=== PATIENT | female | born 1955 | race Caucasian/White ===

== ENCOUNTER 2020-07-07 04:05 | Inpatient (IN) | payer MEDICARE, OTHER ==
[2020-07-07 05:53] VITALS: BMI 39.4
--- NOTE | 2020-07-07 09:28 | PDOC.HHP ---
Hospitalist HPI Hypertensive urgency History of Present Illness: 65 y/o female with history of HTN, CAD, Pacemaker/Defibrillator, Diabetes who complains of not feeling well that last couple days, states she has had a sinking feeling on and off over the last 7 days. Patient here for hypertensive urgency, states her blood pressure at home was ranging 170-190 systolic/90-100 diastolic. Patient takes Lasix, Lisinopril, Amlodipine, Carvedilol and Clonidine PRN. Patient had a headache on and off over the last couple days, describes it as throbbing. Denies nausea, chest pain, shortness of breath, dizziness or hematuria. ED Course: patient was a direct admit from [facility]. Allergies/Adverse Reactions: Allergy/AdvReac Type Severity Reaction Status Date / Time tramadol Allergy Verified 07/07/20 07:30 metformin AdvReac Verified 07/07/20 07:30 Home Medications: Medication Instructions Recorded Confirmed Type Furosemide [Lasix] 40 mg PO QAM #0 tab 02/17/13 07/07/20 Rx Clopidogrel Bisulfate [Plavix] 75 mg PO DAILY 08/08/13 07/07/20 History Lisinopril 10 mg PO DAILY 12/31/14 07/07/20 History Amlodipine [Norvasc] 5 mg PO DAILY 02/20/16 07/07/20 History Atorvastatin Calcium 80 mg PO DAILY 09/28/16 07/07/20 History Carvedilol 25 mg PO BID 09/28/16 07/07/20 History Acetaminophen 500 mg PO PRN PRN 07/07/20 07/07/20 History Aspirin [Ecotrin] 81 mg PO DAILY 07/07/20 07/07/20 History Cholecalciferol (Vitamin D3) 1,000 unit PO DAILY 07/07/20 07/07/20 History [Vitamin D] Glimepiride 4 mg PO QAM-WM 07/07/20 07/07/20 History cloNIDine [Catapres] 1 tab PO PRN PRN 07/07/20 07/07/20 History Past History: PMHx: 1. HTN 2. CAD 3. Diabetes PSHx: 1. Tonsillectomy 2. Hysterectomy 3. CABG 4. Defibrillator/Pacemaker placement FHx: Noncontributory Social: Denies drinking, smoking, drug use. Single female lives at home by herself in [place]. Hospitalist HPI ROS Constitutional: denies: fever, chills, sweats, weakness, malaise, other Eyes: denies: pain, vision change, conjunctivae inflammation, eyelid inflammation, redness, other ENT: denies: ear pain, ear discharge, nose pain, nose discharge, nose congestion, mouth pain, mouth swelling, throat pain, throat swelling, other Respiratory: denies: cough, dry, shortness of breath, hemoptysis, SOB with excertion, pleuritic pain, sputum, wheezing, other Cardiovascular: denies: chest pain, palpitations, orthopnea, paroxysmal noc. dyspnea, edema, light headedness, other Gastrointestinal: denies: nausea, vomiting, abdominal pain, diarrhea, constipati on, melena, hematochezia, other Genitourinary: denies: dysuria, frequency, incontinence, hematuria, retention, other Musculoskeletal: denies: neck pain, shoulder pain, arm pain, back pain, hand pain, leg pain, foot pain, other Skin: denies: rash, lesions, dusty, bruising, other Neurological: denies: weakness, numbness, incoordination, change in speech, confusion, seizures, other All other systems reviewed; all pertinent +/- noted in HPI/Subj Hospitalist Exam Vitals: Vital Signs (12 hours) Temp Pulse Resp BP Pulse Ox 07/07/20 07:35 98.5 F 61 18 167/85 H 98 07/07/20 05:59 98.2 F 72 18 178/82 H 98 07/07/20 04:30 98 07/07/20 04:18 97.8 F 72 18 192/72 H 98 Weight Weight 208 lb 8.917 oz General Appearance: NAD, awake alert Eye: PERRL, anicteric sclera ENT: normocephalic atraumatic, no oropharyngeal lesions, moist mucosa Neck: supple, symmetric, no JVD, no thyromegaly, no lymphadenopathy, no carotid bruit Heart: RRR, no murmur, no gallops, no rubs, normal peripheral pulses Respiratory: CTAB, no wheezes, no rales, no ronchi, normal chest expansion, no tachypnea, normal percussion Gastrointestinal: soft, non-tender, non-distended, normal bowel sounds, no palpable masses, no hepatomegaly, no splenomegaly, no bruit Extremities: no cyanosis, no clubbing, no edema Skin: normal turgor, no lesions, no rashes Neurological: cranial nerve grossly intact, normal sensation to touch, no weakness, no focal deficits, no new deficit Musculoskeletal: normal tone, normal strength, no muscle wasting Psychiatric: normal affect, normal behavior, A&O x 3 Hospitalist Results Result Diagrams: 07/07/20 12:06 07/07/20 10:18 Lab results: Laboratory Last Values POC Glucose 152 mg/dL (70-100) H 07/07/20 05:26 Hospitalist H&P A/P (1) Hypertensive urgency Code(s): I16.0 - HYPERTENSIVE URGENCY Status: Acute (2) CAD (coronary artery disease) Code(s): I25.10 - ATHSCL HEART DISEASE OF [place] CORONARY ARTERY W/O ANG PCTRS Status: Chronic (3) Diabetes Code(s): E11.9 - TYPE 2 DIABETES MELLITUS WITHOUT COMPLICATIONS Status: Chronic Qualifiers: Diabetes mellitus type: type 2 Plan: 65 y/o female directly admitted from [facility] for hypertensive urgency. Patient c/o not feeling well that last couple days, states she has had a sinking feeling on and off over the last 7 days. Patient has history of HTN, CAD, Pacemaker/Defibrillator placement, Diabetes. Patient's print graphic designer is Dr. Torres, states she had a normal stress test about 1 year ago. EKG showed 70 paced rhythm. PLAN: Hypertensive Urgency -Patient here for hypertensive urgency, states her blood pressure at home was ranging 170-190/90-100. Patient takes Lasix, Lisinopril, Amlodipine, Carvedilol and Clonidine PRN. -Continue home medications and will monitor BP while here q4. If controlled, can possibly dc in 24 hours CAD s/p CABG -Troponins are trending up, patient denies chest pain. -ECHO ordered. CKMB critical value of 36.0, will trend -Continue aspirin and plavix and statin Diabetes -Accuchecks ACHS -Continue home medications. CKD - creatinine 1.41, at baseline Transaminitis - LFTS showed 41 AST and 67 ALT. Will repeat FULL CODE STATUS.
[2020-07-07 10:42] LABS: ALT (SGPT) 67 U/L (8-55); AST (SGOT) 41 U/L (5-34); Albumin 3.2 g/dL (3.4-4.8); Alkaline Phosphatase 144 U/L (40-110); Anion Gap 16 mmol/L (10-20); BUN (Urea Nitrogen) 39 mg/dL (9.8-20.1); Bilirubin, Total 0.5 mg/dL (0.2-1.2); Calc. Creatinine Clearance 59 mL/min (70-130); Calcium 8.1 mg/dL (7.8-10.44); Carbon Dioxide 17 mmol/L (23-31); Chloride 112 mmol/L (98-107); Globulin 2.4 g/dL (2.4-3.5); Glucose 109 mg/dL (80-115); Potassium 3.9 mmol/L (3.5-5.1); Protein, Total 5.6 g/dL (5.8-8.1); Sodium 141 mmol/L (136-145)
[2020-07-07] MEDS ORDERED: Amlodipine 5 MG TAB PO SCH (10:45)
[2020-07-07] MEDS ORDERED: Lisinopril 10 MG TAB PO SCH (10:45)
[2020-07-07] MEDS ORDERED: Dextrose 5% in Water 1,000 ML IV PRN (12:10)
[2020-07-07] MEDS ORDERED: Dextrose 50% Abboject 50 ML SYRINGE SLOW IVP PRN (12:10)
[2020-07-07 12:17] LABS: #Eosinphils 0.2 thou/uL (0.0-0.7); #Lymphocytes 1.4 thou/uL (1.20-3.40); #Monocytes 0.4 thou/uL (0.11-0.59); #Neutrophils 2.8 thou/uL (1.40-6.50); %Basophils 0.6 % (0.0-1.0); %Eosinophils 4.3 % (0.0-10.0); %Lymphocytes 28.9 % (21.0-51.0); %Monocytes 8.2 % (0.0-10.0); Hemoglobin 10.6 g/dL (12.0-16.0); Mean Corpuscular HGB CONC 34.1 g/dL (32.0-36.0); Mean Corpuscular Hemoglobin 29.5 pg (27.0-31.0); Mean Corpuscular Volume 86.6 fL (78.0-98.0); Mean Platelet Volume 9.1 fL (7.4-10.4); Platelet Count 145 thou/uL (130-400); RBC Distribution Width 14.5 % (11.5-14.5); Red Blood Cell (RBC) Count 3.57 mill/uL (4.20-5.40); White Blood Cell (WBC) Count 4.8 thou/uL (4.8-10.8)
[2020-07-07] MEDS: cloNIDine 0.1 MG TAB PO PRN ×2 (16:42→21:55)
[2020-07-07 17:03] LABS: CKMB 29.4 ng/mL (0-6.6); Critical Call CKMB RESULT DECREASING
[2020-07-07] MEDS ORDERED: Acetaminophen 500 MG TAB PO PRN (18:04)
[2020-07-07] MEDS: Atorvastatin Calcium 40 MG TAB PO SCH (20:55)
[2020-07-07] MEDS: Carvedilol 25 MG TAB PO SCH (20:55)
[2020-07-07] MEDS ORDERED: HumaLOG 300 UNITS/3 ML VIAL SC PRN (21:19)
[2020-07-07] MEDS ORDERED: cloNIDine 0.1 MG TAB PO PRN (23:26)
[2020-07-08] MEDS: hydrALAZINE 20 MG/ML VIAL SLOW IVP PRN ×2 (00:15→10:18)
[2020-07-08 05:05] LABS: ALT (SGPT) 54 U/L (8-55); AST (SGOT) 26 U/L (5-34); Albumin 2.9 g/dL (3.4-4.8); Alkaline Phosphatase 122 U/L (40-110); Anion Gap 11 mmol/L (10-20); BUN (Urea Nitrogen) 41 mg/dL (9.8-20.1); Bilirubin, Total 0.5 mg/dL (0.2-1.2); Calc. Creatinine Clearance 59 mL/min (70-130); Calcium 7.8 mg/dL (7.8-10.44); Carbon Dioxide 23 mmol/L (23-31); Chloride 109 mmol/L (98-107); Globulin 2.1 g/dL (2.4-3.5); Glucose 90 mg/dL (80-115); Sodium 139 mmol/L (136-145)
[2020-07-08] MEDS: Furosemide 40 MG TAB PO SCH (08:10)
[2020-07-08] MEDS: Aspirin 81 mg Enteric Coated Tablet PO SCH (08:10)
[2020-07-08] MEDS: Clopidogrel Bisulfate 75 MG TAB PO SCH (08:10)
[2020-07-08] MEDS: Carvedilol 25 MG TAB PO SCH ×2 (08:10→21:20)
[2020-07-08] MEDS: Lisinopril 20 MG TAB PO SCH (08:10)
[2020-07-08] MEDS: Glimepiride 4 MG TAB PO SCH (08:10)
[2020-07-08] MEDS: Cholecalciferol 1,000 UNITS (25 MCG) TAB PO SCH (08:10)
[2020-07-08] MEDS ORDERED: Lisinopril 10 MG TAB PO SCH (09:00)
[2020-07-08] MEDS ORDERED: Enoxaparin Sodium 40 MG/0.4 ML SYRINGE SC SCH (09:00)
[2020-07-08] MEDS ORDERED: Amlodipine 5 MG TAB PO SCH ×3 (09:00→10:36)
[2020-07-08] MEDS ORDERED: Aspirin 325 MG TAB PO SCH (09:00)
[2020-07-08] MEDS ORDERED: Atorvastatin Calcium 10 MG TAB PO SCH (09:00)
[2020-07-08] MEDS ORDERED: Clopidogrel Bisulfate 75 MG TAB PO SCH (09:00)
[2020-07-08] MEDS ORDERED: Cholecalciferol 1,000 UNITS (25 MCG) TAB PO SCH (09:00)
--- NOTE | 2020-07-08 09:43 | PDOC.HOSPP ---
- Subjective Encounter Date: 07/08/20 Encounter Time: 09:41 Subjective: Overnight patient continues to remain hypertensive to 190s. This AM she endorses very mild headache that she would not take tylenol for. Denies chest pain, SOB. No abdominal pain. Reports she is making usual amount of urine. Reports she has had lots of difficulty controlling her BP as an outpatient with Dr. Torres and her PCP. Last week lisinopril was added by her PCP to her amlodipine and clonidine. Chart and medications reviewed. - Objective Vital Signs & Weight: Vital Signs (12 hours) Temp Pulse Resp BP BP Pulse Ox 07/08/20 08:58 96 07/08/20 08:00 98.3 F 61 17 198/80 H 96 07/08/20 04:30 98.0 F 61 12 172/68 H 96 07/08/20 00:15 204/84 H 07/08/20 00:00 184/84 H 07/07/20 21:55 204/84 H 186/78 H Weight Weight 210 lb 8.663 oz I&O: 07/07/20 07/08/20 07/09/20 06:59 06:59 06:59 Intake Total 720 Balance 720 Result Diagrams: 07/07/20 12:06 07/08/20 04:00 Additional Labs: Accuchecks 07/08/20 07/07/20 07/07/20 05:35 20:54 17:12 POC Glucose 104 H 208 H 134 H 07/07/20 10:50 POC Glucose 102 H Hospitalist ROS - Review of Systems Constitutional: denies: fever, chills, sweats, weakness, malaise, other Eyes: denies: pain, vision change, conjunctivae inflammation, eyelid inflammation, redness, other ENT: denies: ear pain, ear discharge, nose pain, nose discharge, nose congestion, mouth pain, mouth swelling, throat pain, throat swelling, other Respiratory: denies: cough, dry, shortness of breath, hemoptysis, SOB with excertion, pleuritic pain, sputum, wheezing, other Cardiovascular: denies: chest pain, palpitations, orthopnea, paroxysmal noc. dyspnea, edema, light headedness, other Gastrointestinal: denies: nausea, vomiting, abdominal pain, diarrhea, constipation, melena, hematochezia, other Genitourinary: denies: dysuria, frequency, incontinence, hematuria, retention, other Musculoskeletal: denies: neck pain, shoulder pain, arm pain, back pain, hand pain, leg pain, foot pain, other Skin: denies: rash, lesions, dusty, bruising, other Neurological: denies: weakness, numbness, incoordination, change in speech, confusion, seizures, other - Medication Medications: Active Medications Generic Name Dose Route Start Last Admin Trade Name Freq PRN Reason Stop Dose Admin Aspirin 81 mg 07/08/20 09:00 07/08/20 08:10 Aspirin 81 Mg Enteric Coated Tablet PO 81 mg DAILY MEHREEN Administration Atorvastatin Calcium 80 mg 07/07/20 21:00 07/07/20 20:55 Atorvastatin Calcium 40 Mg Tab PO 80 mg HS MEHREEN Administration Carvedilol 25 mg 07/07/20 21:00 07/08/20 08:10 Carvedilol 25 Mg Tab PO 25 mg BID MEHREEN Administration Cholecalciferol 1,000 units 07/08/20 09:00 07/08/20 08:10 Cholecalciferol 1,000 Units (25 Mcg) Tab PO 1,000 units DAILY MEHREEN Administration Clopidogrel Bisulfate 75 mg 07/08/20 09:00 07/08/20 08:10 Clopidogrel Bisulfate 75 Mg Tab PO 75 mg DAILY MEHREEN Administration Furosemide 40 mg 07/08/20 09:00 07/08/20 08:10 Furosemide 40 Mg Tab PO 40 mg QAM MEHREEN Administration Glimepiride 4 mg 07/08/20 08:00 07/08/20 08:10 Glimepiride 4 Mg Tab PO 4 mg QAM-WM MEHREEN Administration Hydralazine HCl 20 mg 07/07/20 23:06 07/08/20 00:15 Hydralazine 20 Mg/Ml Vial SLOW IVP 20 mg Q6H PRN Administration SBP > 180 Insulin Human Lispro 0 units 07/07/20 21:19 07/07/20 21:55 Humalog 300 Units/3 Ml Vial SC 2 unit .BEDTIME SLIDING SC PRN Administration Bedtime Correctional Scale Lisinopril 20 mg 07/08/20 09:00 07/08/20 08:10 Lisinopril 20 Mg Tab PO 20 mg DAILY MEHREEN Administration Hospitalist Exam Vitals: Vital Signs (12 hours) Temp Pulse Resp BP BP Pulse Ox 07/08/20 08:58 96 07/08/20 08:00 98.3 F 61 17 198/80 H 96 07/08/20 04:30 98.0 F 61 12 172/68 H 96 07/08/20 00:15 204/84 H 07/08/20 00:00 184/84 H 07/07/20 21:55 204/84 H 186/78 H Weight Weight 210 lb 8.663 oz General Appearance: NAD, awake alert Eye: PERRL, anicteric sclera Eye - other findings: No papilledema noted on funduscopic exam ENT: normocephalic atraumatic, no oropharyngeal lesions, moist mucosa Neck: supple, symmetric, no JVD, no thyromegaly, no lymphadenopathy, no carotid bruit Heart: RRR, no murmur, no gallops, no rubs, normal peripheral pulses Respiratory: CTAB, no wheezes, no rales, no ronchi, normal chest expansion, no tachypnea, normal percussion Gastrointestinal: soft, non-tender, non-distended, normal bowel sounds, no palpable masses, no hepatomegaly, no splenomegaly, no bruit Extremities: no cyanosis, no clubbing, no edema Skin: normal turgor, no lesions, no rashes Neurological: cranial nerve grossly intact, normal sensation to touch, no weakness, no focal deficits, no new deficit Musculoskeletal: normal tone, normal strength, no muscle wasting Psychiatric: normal affect, normal behavior, A&O x 3 Hosp A/P - Plan Hypertensive Emergency Pt presented in hypertensive emergency with BP elevation as high as 210s/110s. Troponin very mildly elevated. Trend has remained flat. Patient has had historic difficulty controlling her BP and in the past has tried multiple medications including amlodipine, lisniopril, catapress. She tells me that her PCP added lisinopril last week. States that she has tried higher doses of amlodipine in the past, but that this causes her lower extremity swelling so she is hesitant to increase it. Will add PO hydralaze 25 mg qam, increase catapress from 0.1 to 0.2 BID. PRN Hydralazine IV is also available. Given patient's multiple BP medication requirements, will check renal artery US. Plan -Add Hydralazine PO 25 mg qam -Increase catapress to 0.2 BID -PRN Hydralazine IV -Continue lisinopril 10 mg, amlodpine 5 mg, carvedilol 25 mg BID -Renal artery US to r/o stenosis Elevation in Troponin Troponin mildly elevated at 0.033, 0.053, 0.044. Patient denies chest pain. EKG with NSR and no ischemic changes. Patient with hx of CKD. Suspect mildly elevated troponin secondary to decreased renal clearance. Will continue to monitor on telemetry. No indication for echocardiogram or further work up at this time. Plan -Mild elevation 2/2 CKD -Telemetry monitoring -Monitor for new symptoms CKD Patient with hx of CKD. BUN/Cr 41/1.41, which appears to be patient's baseline. Plan -Monitor renal function -Avoid nephrotoxic agents -Renal dosing as appropriate T2DM Accuchecks, continue home glimeperide Transaminitis Mildly elevated AST/ALT /. Downtrending this am wnl. Advised pt to f/u with PCP for further monitoring. CAD s/p CABG Hx of CAD s/p CABG. Will continue home coreg, matt, ASA. No CP. AICD in situ Patient with PPM and AICD. Patient currently denies chest pain, palpitations. Reports she has not felt it go off. Will monitor on telemetry. DVT prophylaxis- SQ Heparin FULL CODE Case discussed with attending physician.
[2020-07-08] MEDS ORDERED: HumaLOG 300 UNITS/3 ML VIAL SC PRN (12:15)
[2020-07-08] MEDS ORDERED: Acetaminophen 500 MG TAB PO PRN (12:36)
[2020-07-08] MEDS: cloNIDine 0.2 MG TAB PO SCH (21:20)
[2020-07-08] MEDS: Atorvastatin Calcium 40 MG TAB PO SCH (21:20)
[2020-07-08] MEDS: Heparin 5,000 UNITS/ML VIAL SC SCH (21:20)
--- NOTE | 2020-07-09 07:46 | ULT ---
CLINICAL HISTORY: Hypertension. STUDY: Renal ultrasound and renal artery ultrasound COMPARISON: None. TECHNIQUE: Multiplanar grayscale and color Doppler images were obtained in a renal ultrasound. Spectr al analysis of the Doppler waveforms of the aorta and renal arteries were performed. FINDINGS: Right kidney: Echogenicity: Normal. Masses/cysts: None. Hydronephrosis: None. Calcifications: None. Length: 8.5 cm Left kidney: Echogenicity: Normal. Masses/cysts: None. Hydronephrosis: None. Calcifications: None. Length: 10.9 cm Limited visualization of the urinary bladder is unremarkable. Peak systolic velocity in the aorta: 76 cm/s Peak systolic velocity in the right renal artery: 44 cm/s. Right renal artery to aortic ratio: 0.6 Peak systolic velocity in the left renal artery: 108 cm/s. Left renal artery to aortic ratio: 1.4 IMPRESSION: 1. Unremarkable renal ultrasound 2. No evidence of renal artery stenosis
[2020-07-09] MEDS: Lisinopril 20 MG TAB PO SCH (08:25)
[2020-07-09] MEDS: Carvedilol 25 MG TAB PO SCH ×2 (08:25→21:23)
[2020-07-09] MEDS: Furosemide 40 MG TAB PO SCH (08:25)
[2020-07-09] MEDS: Glimepiride 4 MG TAB PO SCH (08:26)
[2020-07-09] MEDS: Amlodipine 5 MG TAB PO SCH (08:26)
[2020-07-09] MEDS: Clopidogrel Bisulfate 75 MG TAB PO SCH (08:26)
[2020-07-09] MEDS: cloNIDine 0.2 MG TAB PO SCH ×2 (08:26→21:23)
[2020-07-09] MEDS: Heparin 5,000 UNITS/ML VIAL SC SCH (08:26)
[2020-07-09] MEDS: Aspirin 81 mg Enteric Coated Tablet PO SCH (08:26)
[2020-07-09] MEDS: Cholecalciferol 1,000 UNITS (25 MCG) TAB PO SCH (08:26)
[2020-07-09] MEDS ORDERED: hydrALAZINE 25 MG TAB PO SCH ×4 (09:00→21:00)
[2020-07-09 13:08] LABS: #Eosinphils 0.2 thou/uL (0.0-0.7); #Lymphocytes 1.1 thou/uL (1.20-3.40); #Monocytes 0.4 thou/uL (0.11-0.59); #Neutrophils 2.3 thou/uL (1.40-6.50); %Basophils 0.4 % (0.0-1.0); %Eosinophils 4.2 % (0.0-10.0); %Lymphocytes 28.3 % (21.0-51.0); %Neutrophils 58.2 % (42.0-75.0); Hemoglobin 9.6 g/dL (12.0-16.0); Mean Corpuscular HGB CONC 33.9 g/dL (32.0-36.0); Mean Corpuscular Hemoglobin 30.1 pg (27.0-31.0); Mean Corpuscular Volume 88.9 fL (78.0-98.0); Mean Platelet Volume 8.8 fL (7.4-10.4); Platelet Count 107 thou/uL (130-400); RBC Distribution Width 14.2 % (11.5-14.5)
[2020-07-09 13:09] LABS: MDiff Complete? YES; Platelet Morphology Comment Appears Decreased; Polychromasia SLIGHT = 2-3 cells (100X) (0-2/hpf)
[2020-07-09 13:16] LABS: Anion Gap 13 mmol/L (10-20); BUN (Urea Nitrogen) 39 mg/dL (9.8-20.1); Calc. Creatinine Clearance 57 mL/min (70-130); Calcium 7.9 mg/dL (7.8-10.44); Carbon Dioxide 21 mmol/L (23-31); Chloride 110 mmol/L (98-107); Glucose 180 mg/dL (80-115); Potassium 3.7 mmol/L (3.5-5.1); Sodium 140 mmol/L (136-145)
--- NOTE | 2020-07-09 13:21 | PDOC.HOSPP ---
- Subjective Encounter Date: 07/09/20 Encounter Time: 13:16 Subjective: Overnight patient continues to be hypertensive despite multiple medications. She denies chest pain, SOB, abdominal pain. Denies headache and states that she feels in her usual state of health. Chart and medications reviewed. - Objective Vital Signs & Weight: Vital Signs (12 hours) Temp Pulse Resp BP Pulse Ox 07/09/20 12:00 98.2 F 61 17 178/64 H 96 07/09/20 08:55 94 L 07/09/20 08:00 98.3 F 64 17 196/78 H 94 L 07/09/20 04:05 97.9 F 60 12 178/72 H 96 Weight Weight 210 lb 12.191 oz I&O: 07/08/20 07/09/20 07/10/20 06:59 06:59 06:59 Intake Total 720 960 Balance 720 960 Result Diagrams: 07/09/20 12:33 07/08/20 04:00 Additional Labs: Accuchecks 07/09/20 07/09/20 07/08/20 10:51 06:20 20:34 POC Glucose 201 H 113 H 184 H 07/08/20 17:10 POC Glucose 157 H Hospitalist ROS - Review of Systems Constitutional: denies: fever, chills, sweats, weakness, malaise, other Eyes: denies: pain, vision change, conjunctivae inflammation, eyelid inflammation, redness, other ENT: denies: ear pain, ear discharge, nose pain, nose discharge, nose conge stion, mouth pain, mouth swelling, throat pain, throat swelling, other Respiratory: denies: cough, dry, shortness of breath, hemoptysis, SOB with excertion, pleuritic pain, sputum, wheezing, other Cardiovascular: denies: chest pain, palpitations, orthopnea, paroxysmal noc. dyspnea, edema, light headedness, other Gastrointestinal: denies: nausea, vomiting, abdominal pain, diarrhea, constipation, melena, hematochezia, other Genitourinary: denies: dysuria, frequency, incontinence, hematuria, retention, other Musculoskeletal: denies: neck pain, shoulder pain, arm pain, back pain, hand pain, leg pain, foot pain, other Skin: denies: rash, lesions, dusty, bruising, other Neurological: denies: weakness, numbness, incoordination, change in speech, confusion, seizures, other - Medication Medications: Active Medications Generic Name Dose Route Start Last Admin Trade Name Freq PRN Reason Stop Dose Admin Acetaminophen 500 mg 07/08/20 12:36 07/08/20 21:20 Acetaminophen 500 Mg Tab PO 500 mg Q6H PRN Administration MILD PAIN 1-3 Amlodipine Besylate 5 mg 07/09/20 09:00 07/09/20 08:26 Amlodipine 5 Mg Tab PO 5 mg DAILY MEHREEN Administration Aspirin 81 mg 07/08/20 09:00 07/09/20 08:26 Aspirin 81 Mg Enteric Coated Tablet PO 81 mg DAILY MEHREEN Administration Atorvastatin Calcium 80 mg 07/07/20 21:00 07/08/20 21:20 Atorvastatin Calcium 40 Mg Tab PO 80 mg HS [facility] Administration Carvedilol 25 mg 07/07/20 21:00 07/09/20 08:25 Carvedilol 25 Mg Tab PO 25 mg BID MEHREEN Administration Cholecalciferol 1,000 units 07/08/20 09:00 07/09/20 08:26 Cholecalciferol 1,000 Units (25 Mcg) Tab PO 1,000 units DAILY MEHREEN Administration Clonidine 0.2 mg 07/08/20 21:00 07/09/20 08:26 Clonidine 0.2 Mg Tab PO Not Given BID [facility] Clopidogrel Bisulfate 75 mg 07/08/20 09:00 07/09/20 08:26 Clopidogrel Bisulfate 75 Mg Tab PO 75 mg DAILY MEHREEN Administration Furosemide 40 mg 07/08/20 09:00 07/09/20 08:25 Furosemide 40 Mg Tab PO 40 mg QAM MEHREEN Administration Glimepiride 4 mg 07/08/20 08:00 07/09/20 08:26 Glimepiride 4 Mg Tab PO 4 mg QAM-WM MEHREEN Administration Hydralazine HCl 20 mg 07/07/20 23:06 07/08/20 10:18 Hydralazine 20 Mg/Ml Vial SLOW IVP 20 mg Q6H PRN Administration SBP > 180 Hydralazine HCl 25 mg 07/09/20 09:00 07/09/20 08:26 Hydralazine 25 Mg Tab PO 25 mg DAILY MEHREEN Administration Insulin Human Lispro 0 units 07/07/20 21:19 07/07/20 21:55 Humalog 300 Units/3 Ml Vial SC 2 unit .BEDTIME SLIDING SC PRN Administration Bedtime Correctional Scale Lisinopril 20 mg 07/08/20 09:00 07/09/20 08:25 Lisinopril 20 Mg Tab PO 20 mg DAILY MEHREEN Administration Hospitalist Exam Vitals: Vital Signs (12 hours) Temp Pulse Resp BP Pulse Ox 07/09/20 12:00 98.2 F 61 17 178/64 H 96 07/09/20 08:55 94 L 07/09/20 08:00 98.3 F 64 17 196/78 H 94 L 07/09/20 04:05 97.9 F 60 12 178/72 H 96 Weight Weight 210 lb 12.191 oz General Appearance: NAD, awake alert Eye: PERRL, anicteric sclera ENT: normocephalic atraumatic, no oropharyngeal lesions, moist mucosa Neck: supple, symmetric, no JVD, no thyromegaly, no lymphadenopathy, no carotid bruit Heart: RRR, no murmur, no gallops, no rubs, normal peripheral pulses Respiratory: CTAB, no wheezes, no rales, no ronchi, normal chest expansion, no tachypnea, normal percussion Gastrointestinal: soft, non-tender, non-distended, normal bowel sounds, no palpable masses, no hepatomegaly, no splenomegaly, no bruit Extremities: no cyanosis, no clubbing, no edema Skin: normal turgor, no lesions, no rashes Neurological: cranial nerve grossly intact, normal sensation to touch, no weakness, no focal deficits, no new deficit Musculoskeletal: normal tone, normal strength, no muscle wasting Psychiatric: normal affect, normal behavior, A&O x 3 Hosp A/P - Plan Hypertensive Emergency Pt presented in hypertensive emergency with BP elevation as high as 210s/110s. Troponin very mildly elevated. Trend has remained flat. Patient has had historic difficulty controlling her BP and in the past has tried multiple medications including amlodipine, lisniopril, catapress. She tells me that her PCP added lisinopril last week. States that she has tried higher doses of amlodipine in the past, but that this causes her lower extremity swelling so she is hesitant to increase it. Renal artery US wnl. 07/08 increased lisinopril from 10 mg to 20 mg and added hydralazine 25 mg. Will increase hydralazine to 50 mg BID. Given patient's resistant HTN to multiple agents, will also obtain plasma metanephrines, cortisol level, and TSH. Will consider cardiology consult if BP does not respond to oral agents. Plan -Increase hydralazine to 50 mg BID -Continue lisinopril 20 mg, amlodpine 5 mg, carvedilol 25 mg BID -PRN Hydralazine IV -Renal artery US wnl -Metanephrines, cortisol, TSH Elevation in Troponin Troponin mildly elevated at 0.033, 0.053, 0.044. Patient denies chest pain. EKG with NSR and no ischemic changes. Patient with hx of CKD. Suspect mildly elevated troponin secondary to decreased renal clearance. Will continue to monitor on telemetry. Plan -Mild elevation 2/2 CKD -Telemetry monitoring -Monitor for new symptoms CKD Patient with hx of CKD. BUN/Cr 41/1.41, which appears to be patient's baseline. Plan -Monitor renal function -Avoid nephrotoxic agents -Renal dosing as appropriate T2DM Accuchecks, continue home glimeperide Transaminitis Mildly elevated AST/ALT 41/67. Downtrending this am wnl. Advised pt to f/u with PCP for further monitoring. CAD s/p CABG Hx of CAD s/p CABG. Will continue home coreg, matt, ASA. No CP. AICD in situ Patient with PPM and AICD. Patient currently denies chest pain, palpitations. Reports she has not felt it go off. Will monitor on telemetry. DVT prophylaxis- SQ Heparin FULL CODE Case discussed with attending physician Dr. Faust.
[2020-07-09] MEDS: hydrALAZINE 20 MG/ML VIAL SLOW IVP PRN (17:48)
[2020-07-09] MEDS ORDERED: Lisinopril 20 MG TAB PO SCH (21:00)
[2020-07-09] MEDS: Atorvastatin Calcium 40 MG TAB PO SCH (21:22)
[2020-07-09] MEDS: Losartan 25 MG TAB PO SCH (21:23)
[2020-07-10 08:36] VITALS: TEMP 98
[2020-07-10] MEDS: Glimepiride 4 MG TAB PO SCH (09:37)
[2020-07-10] MEDS: Clopidogrel Bisulfate 75 MG TAB PO SCH (09:38)
[2020-07-10] MEDS: Cholecalciferol 1,000 UNITS (25 MCG) TAB PO SCH (09:38)
[2020-07-10] MEDS: hydrALAZINE 25 MG TAB PO SCH ×2 (09:38→14:34)
[2020-07-10] MEDS: cloNIDine 0.2 MG TAB PO SCH (09:38)
[2020-07-10] MEDS: Aspirin 81 mg Enteric Coated Tablet PO SCH (09:38)
[2020-07-10] MEDS: Carvedilol 25 MG TAB PO SCH (09:39)
[2020-07-10] MEDS: Losartan 25 MG TAB PO SCH (09:40)
[2020-07-10] MEDS: Amlodipine 5 MG TAB PO SCH (09:40)
[2020-07-10] MEDS: Furosemide 40 MG TAB PO SCH (09:40)
[2020-07-10 11:21] VITALS: BP 150/62
[2020-07-10 13:47] LABS: Iron 53 ug/dL (50-170); Iron Binding Capacity, Total 209 mcg/dL (265-497)
--- NOTE | 2020-07-10 17:15 | PDOC.DS.DS ---
Provider Date of Admission: 07/08/20 09:40 Date of Discharge: 07/10/20 Admitting Provider: Delano Bowen MD Primary Care Physician: Fannie Urbano MD Course Hospital Course: BRIEF HOSPITAL COURSE Ms. Sutton is a 65-year-old female with possible history of hypertension, coronary artery disease status post CABG, AICD, type 2 diabetes mellitus, CKD who initially presented as a direct admit from [facility] on 07/07/2020 due to high blood pressure readings at home. Patient endorsed general malaise, but no specific symptoms. She did endorse very slight headache but no chest pain, shortness of breath or other symptoms. Given her headache symptoms a CT scan was done at [facility] which had no acute findings. She was found to be severely hypertensive on presentation with hypertensive emergency. Her initial blood pressure on arrival to [facility] was 192/72. Her troponin was very slightly elevated at 0.033. Thought to be secondary to demand ischemia, type II NSTEMI. Patient had no chest pain and troponins were trended to peak with repeat 0.033, 0.053, 0.044. Patient was monitored on telemetry and had no ST changes or abnormal findings. Her rhythm was V paced. Patient's blood pressure regimen was adjusted several times, and patient had severely resistant hypertension requiring multiple agents. Prior to hospitalization she was on 5 mg of amlodipine, 25 mg of carvedilol twice daily, and 40 mg of Lasix. Patient saw her dial mounter Dr. Torres as an outpatient week prior to admission and was started on lisinopril 10 mg daily prior to her presentation. Patient had consistent readings in the 200 range, and needed multiple oral and IV agents to control her blood pressure. Work-up for causes of secondary hypertension was started. A renal artery ultrasound was done which showed no arterial stenosis. Cortisol levels were drawn which were within normal limits, TSH, PTH, prolactin levels were also drawn which were normal. Plasma metanephrines were drawn, and are pending. Patient will need to follow-up with this lab as an outpatient with her primary care provider. Patient's blood pressure was finally in an acceptable range for discharge consistently in the 150s over 70s on a regimen of amlodipine 5 mg daily, hydralazine 75 mg 3 times daily, losartan 50 mg twice daily, carvedilol 25 mg twice daily. Patient's Lasix was continued. Patient declined increase of her home amlodipine secondary to side effects of lower extremity swelling in the past. Clonidine was also avoided as it did not seem to have much effect on patient's systolic blood pressure, but did bring down tomas ross's already relatively low diastolic pressure. Case was also discussed with Dr. Torres of cardiology as she is quite familiar with the patient and she was in agreement with additional regimen. Patient does have a medical history significant for her mother with a pituitary tumor. Recommend that since the patient's blood pressure has previously always been under quite well control that she follow-up as an outpatient with an supervisor grower and underwriting clerks supervisor. I have placed referrals from her both upon discharge. I also instructed patient to closely monitor her blood pressure at home and bring her readings to her primary care provider. Stressed the importance of following up with her primary care provider by the end of the week and return precautions were given to the emergency room. Patient was also seen and evaluated by attending physician, Dr. Faust on the day of discharge. She is in agreement with assessment and plan for discharge home. Resuscitation Status: 07/07/20 09:15 Resuscitation Status Routine Co-Sign Provider: Resuscitation Status: FULL: Full Resuscitation Lab Results: 07/09/20 12:33 07/09/20 12:33 Abnormal Lab Results - Last 48 hrs 07/09/20 12:33: Chloride 110 H, Carbon Dioxide 21 L, BUN 39 H, Creatinine 1.49 H 07/09/20 12:33: WBC 4.0 L, RBC 3.20 L, Hgb 9.6 L, Hct 28.4 L, Plt Count 107 L, Lymphocytes # 1.1 L, Plt Morphology Comment Appears Decreased L 07/09/20 12:33: PTH Intact 312.2 H 07/10/20 13:03: TIBC 209 L Vitals: Vital Signs (12 hours) Temp Pulse Resp BP Pulse Ox 07/10/20 11:21 150/62 H 07/10/20 07:48 98.0 F 60 16 162/80 H 94 L 07/10/20 07:34 96 Weight Weight 207 lb 3.752 oz Physical Exam: The patient was seen and examined on the day of discharge. NAD, AOx3 Normocephalic, atraumatic Neck supple, no JVD, no lymphadenopathy RRR, no murmurs, rubs, or gallops Lungs CTAB, no wheezes, no dyspnea or tachypnea Abdomen soft, non-tender with normoactive bowel sounds Skin warm with no rashes, normal turgor Extremities with no edema and intact peripheral pulses Normal tone and muscle strength No focal deficits, no weakness Problem Plan of Treatment: Assessment and Plan: Hypertensive Emergency Pt presented in hypertensive emergency with BP elevation as high as 210s/110s. Troponin very mildly elevated. Trend has remained flat. Patient has had historic difficulty controlling her BP and in the past has tried multiple medications including amlodipine, lisniopril, catapress. She tells me that her PCP added lisinopril last week. States that she has tried higher doses of amlodipine in the past, but that this causes her lower extremity swelling so she is hesitant to increase it. Renal artery US wnl. 07/08 increased lisinopril from 10 mg to 20 mg and added hydralazine 25 mg. Will increase hydralazine to 50 mg BID. Given patient's resistant HTN to multiple agents, secondary w/u was persued. Renal US negative, cortisol, TSH, PTH, prolactin wnl. Urine metanephrines sent (pending) and will need to be followed by PCP. Plan -Hydralazine 75 mg TID -Amlodipine 5 mg daily -Losartan 50 mg BID -Carvediolol 25 mg BID -Lasix 40 mg qam -F/u with PCP in 4-7 days -F/u with supervisor grower in 2-3 weeks -F/u with underwriting clerks supervisor in 2-3 weeks Elevation in Troponin Troponin mildly elevated at 0.033, 0.053, 0.044. Patient denies chest pain. EKG with NSR and no ischemic changes. Patient with hx of CKD. Suspect mildly elevated troponin secondary to decreased renal clearance. Patient had no episodes of chest pain. Telemetry review showed v pacing. Plan -F/u with dial mounter -Return precautions given CKD Patient with hx of CKD. BUN/Cr 41/1.41, which is patient's baseline. Plan -F/u with PCP, underwriting clerks supervisor T2DM Continue home glimeperide. Transaminitis Mildly elevated AST/ALT 41/67. Downtrending this am wnl. Advised pt to f/u with PCP for further monitoring. CAD s/p CABG Hx of CAD s/p CABG. Will continue home coreg, matt, ASA. No CP. Cardiology follow up. AICD in situ Patient with PPM and AICD. No events. F/u with cardiology. FULL CODE Patient was seen and examined by Dr. Faust who is in agreement with discharge home and plan above. Plan Prescriptions: hydrALAZINE [Apresoline] 75 mg PO TID 30 Days #90 tab Carvedilol [Coreg] 25 mg PO BID 30 Days #60 tab Losartan [Cozaar] 50 mg PO BID 30 Days #60 tab Isosorbide Mononitrate [Imdur ER] 30 mg PO BID 30 Days #60 tab Home Medications: Medication Instructions Recorded Confirmed Type Furosemide [Lasix] 40 mg PO QAM #0 tab 02/17/13 07/07/20 Rx Clopidogrel Bisulfate [Plavix] 75 mg PO DAILY 08/08/13 07/07/20 History Amlodipine [Norvasc] 5 mg PO DAILY 02/20/16 07/07/20 History Atorvastatin Calcium 80 mg PO DAILY 09/28/16 07/07/20 History Aspirin [Ecotrin Low Strength] 81 mg PO DAILY 07/07/20 07/07/20 History Cholecalciferol (Vitamin D3) 1,000 unit PO DAILY 07/07/20 07/07/20 History [Vitamin D] Glimepiride 4 mg PO QAM-WM 07/07/20 07/07/20 History Carvedilol [Coreg] 25 mg PO BID 30 Days #60 tab 07/10/20 Rx Isosorbide Mononitrate [Imdur ER] 30 mg PO BID 30 Days #60 tab 07/10/20 Rx Losartan [Cozaar] 50 mg PO BID 30 Days #60 tab 07/10/20 Rx hydrALAZINE [Apresoline] 75 mg PO TID 30 Days #90 tab 07/10/20 Rx Allergies: tramadol Allergy (Verified 07/07/20 07:30) FROM ED PATIENT SUMMARY SHEET metformin Adverse Reaction (Verified 07/07/20 07:30) Discharge Instructions:: You were admitted to the hospital because of very high blood pressure, called a "hypertensive emergency". Your blood pressure was treated with IV medication. Your blood pressure remained significantly elevated and a regimen of oral medications were trialed to bring your blood pressure to a safe level. You had testing done to evaluate for other rare causes of severe high blood pressure which were all negative. Since this is a new problem for you and you are needing so many medications to control your blood pressure, it is recommended that you follow up with a underwriting clerks supervisor and an supervisor grower as an outpatient. Referrals for both of these were made for you. Please call each of their offices (numbers listed in your discharge paperwork) to schedule an appointment within the next few weeks. Please see your primary care provider this week. It is important that you see your primary care provider soon so that they can check on your blood pressure and adjust any medications for you. You were sent home on the following medications for blood pressure control: When you wake up in the morning (8-9am): 1. Amlodipine 5 mg 2. Hydralazine 75 mg 3. Losartan 50 mg 4. Carvedilol 25 mg In the middle of the day (around 2-3pm) check your blood pressure. If it is above 145 systolic, take Hydralazine 75 mg. Before you go to bed at night (9pm): 1. Hydralazine 75 mg 2. Losartan 50 mg 3. Carvediolol 25 mg Please check your blood pressure immediately before, and 1 hour after you take your medications. Bring these readings with you to your primary care provider. Return to the emergency room if you develop headache, changes in vision, chest pain, difficulty breathing, or any other new or concerning symptom. Referrals: KENTRELL ZAVALA MD [MD Not on Staff] - 2-3 Weeks Fannie Urbano MD [Primary Care Provider] - 7 Days (Please call office to schedule a follow up appointment.) Marcy Wahl MD [Active] - 14 Days Disposition: HOME
--- NOTE | 2020-07-11 10:19 | ULT ---
"PRELIMINARY REPORT" CLINICAL HISTORY: Hypertension. STUDY: Renal ultrasound and renal artery ultrasound COMPARISON: None. TECHNIQUE: Multiplanar grayscale and color Doppler images were obtained in a renal ultrasound. Spectr al analysis of the Doppler waveforms of the aorta and renal arteries were performed. FINDINGS: Right kidney: Echogenicity: Normal. Masses/cysts: None. Hydronephrosis: None. Calcifications: None. Length: 8.5 cm Left kidney: Echogenicity: Normal. Masses/cysts: None. Hydronephrosis: None. Calcifications: None. Length: 10.9 cm Limited visualization of the urinary bladder is unremarkable. Peak systolic velocity in the aorta: 76 cm/s Peak systolic velocity in the right renal artery: 44 cm/s. Right renal artery to aortic ratio: 0.6 Peak systolic velocity in the left renal artery: 108 cm/s. Left renal artery to aortic ratio: 1.4 IMPRESSION: 1. Unremarkable renal ultrasound 2. No evidence of renal artery stenosis Transcribed Date/Time: 07/11/2020 10:19 AM
--- NOTE | 2020-07-11 23:29 | PQF ---
CLINICAL DOCUMENTATION CLARIFICATION FORM: Dear : Fany Faust Date / Time: 07/12/2020 Please exercise your independent, professional judgment in responding to the clarification form. Clinical indicators are provided on the bottom of this form for your review Please check appropriate box(es) to clarify if the following diagnosis has been ruled in our ruled out: Type 2 NSTEMI [ X ] Ruled in diagnosis [ X] Continue to treat [ ] Resolved [ ] Ruled out diagnosis [ ] Cannot rule out diagnosis [ ] Other diagnosis [ ] Unable to determine In addition, please specify: Present on Admission (POA): [X ] Yes [ ] No [ ] Unable to determine To be completed by CDI/Coding staff for physician review: Present Clinical Indicators - Signs / Symptoms / Labs Results and Location in Medical Record [ x ] Her troponin was very slightly elevated at 0.033, thought to be secondary to demand ischemia, type II NSTEMI Discharge summary [ x ] Elevation in troponin. Troponin mildly elevated at 0.033, 0.053 and 0.044. Suspect mildly elevated troponin secondary to decreased renal clearance Discharge summary [ x ] CAD, s/p CABG. Troponins are trending up, patient denies chest pain. Echo ordered. Ckmb critical value of 36.0, will trend. Continue aspirin and Plavix and statin H and P Present Risk Factors Results and Location in Medical Record [ x ] Hypertensive emergency, CAD, s/p CABG, AICD Progress note 07/08/20 by Mary Nath PA-C Present Treatments Results and Location in Medical Record [ x ] Echo ordered H and P [ x ] Plavix 75 mg daily, aspirin 81 mg daily Medications [ x ] Daily CBCs Laboratory CDS/Security Operations Center Operator Signature: [id number] Phone #: Date/Time: 07/12/2020 This is a permanent part of the Medical Record [facility]
[2020-07-16 20:09] LABS: Metanephrine,Plasma 13.1 pg/mL (0.0-88.0); Normetanephrine,Pl 43.3 pg/mL (0.0-191.8)
== END 2020-07-10 18:26 | disposition home or self-care (01) | DRG 282 ==
LOC: 2NO 04:05 → OBSVTOIN 07-08 09:40
PROVIDERS: ADMIT Student in an Organized Health Care Education/Training Program; ATTEND Student in an Organized Health Care Education/Training Program
DX: I16.1 Hypertensive emergency (principal); I21.A1 Myocardial infarction type 2; I25.10 Atherosclerotic heart disease of native coronary artery without angina pectoris; I12.9 Hypertensive chronic kidney disease with stage 1 through stage 4 chronic kidney disease, or unspecified chronic kidney disease; E11.22 Type 2 diabetes mellitus with diabetic chronic kidney disease; R74.01 Elevation of levels of liver transaminase levels; R79.89 Other specified abnormal findings of blood chemistry; N18.9 Chronic kidney disease, unspecified; Z95.810 Presence of automatic (implantable) cardiac defibrillator; Z88.8 Allergy status to other drugs, medicaments and biological substances; Z90.710 Acquired absence of both cervix and uterus; Z95.1 Presence of aortocoronary bypass graft
CPT/HCPCS: 36415; 36416; 76770; 80048; 80053; 82088; 82533; 82553; 83540; 83550; 83835; 83970; 84146; 84244; 84443; 84484; 85025; 93975; J0360

== ENCOUNTER 2022-02-04 09:22 | Outpatient (CLI) | payer MEDICARE | END 2022-02-04 09:23 | disposition home or self-care (01) | LOC: BICRAD 09:22 | PROVIDERS: ATTEND Internal Medicine Cardiovascular Disease | DX: J90 Pleural effusion, not elsewhere classified (principal); I51.7 Cardiomegaly; J98.4 Other disorders of lung | CPT/HCPCS: 71046 ==

== ENCOUNTER 2022-09-24 07:36 | Outpatient (CLI) | payer MEDICARE | END 2022-09-24 07:37 | disposition home or self-care (01) | LOC: BICCT 07:36 | PROVIDERS: ATTEND Internal Medicine Cardiovascular Disease | DX: I65.22 Occlusion and stenosis of left carotid artery (principal); I77.89 Other specified disorders of arteries and arterioles | CPT/HCPCS: 70490; 70498 ==

== ENCOUNTER 2024-05-05 10:29 | Inpatient (IN) | payer MEDICARE ==
[2024-05-05] MEDS ORDERED: Morphine 2 MG/ML VIAL ONE (11:42)
[2024-05-05 11:55] LABS: Hematocrit 34.7 % (36.0-47.0); Hemoglobin 10.8 g/dL (12.0-16.0); Mean Corpuscular HGB CONC 31.1 g/dL (32.0-36.0); Mean Corpuscular Hemoglobin 32.3 pg (27.0-31.0); Mean Corpuscular Volume 103.9 fL (78.0-98.0); Mean Platelet Volume 10.9 fL (7.4-10.4); Platelet Count 66 10x3/uL (130-400); RBC Distribution Width 16.6 % (11.5-14.5); Red Blood Cell (RBC) Count 3.34 mill/uL (4.20-5.40)
[2024-05-05 12:03] LABS: ALT (SGPT) 37 U/L (8-55); AST (SGOT) 51 U/L (5-34); Albumin 2.8 g/dL (3.4-4.8); Alkaline Phosphatase 153 U/L (40-110); Anion Gap 20 mmol/L (10-20); BUN (Urea Nitrogen) 34 mg/dL (9.8-20.1); Bilirubin, Total 0.6 mg/dL (0.2-1.2); Calc. Creatinine Clearance 0 mL/min (70-130); Calcium 7.9 mg/dL (7.8-10.44); Carbon Dioxide 16 mmol/L (23-31); Chloride 101 mmol/L (98-107); Estimated GFR 10; Globulin 2.8 g/dL (2.4-3.5); Glucose 263 mg/dL (80-115); Lipase Less than 4 U/L (8-78); Magnesium 2.2 mg/dL (1.6-2.6); Potassium 3.1 mmol/L (3.5-5.1); Protein, Total 5.6 g/dL (5.8-8.1); Sodium 134 mmol/L (136-145)
[2024-05-05 12:04] LABS: Actual Bicarbonate (HCO3a) 17.3 mEq/L (22-28); Analyzer IN Cardio ER; Base Excess (BEa) -6.6 mEq/L (-2.0 to +3.0); CO2 Tension 29.2 mmHg (35.0-45.0); Calcium, Ionized (arterial) 1.04 mmol/L (1.12-1.30); Carboxyhemoglobin (COHb) 0.5 gm% (0.0-3.0); Hematocrit-ABG 31 % (36.0-47.0); Hemoglobin (Hb) 10.6 g/dL (12.0-16.0); O2 Tension (PaO2), arterial 120.8 mmHg (> 80.0); Potassium - ABG Lab 2.91 mmol/L (3.70-5.30)
[2024-05-05 12:05] LABS: Puncture Site Left Brachial artery
[2024-05-05 12:09] LABS: Troponin I 0.191 ng/mL (< 0.028)
[2024-05-05 12:20] LABS: #Basophils Less than 0.03 10x3/uL (0.0-0.2); %Basophils 0.5 % (0.0-1.0); %Eosinophils 1.2 % (0.0-10.0); %Lymphocytes 13.6 % (21.0-51.0); %Monocytes 11.9 % (0.0-10.0); %Neutrophils 72.3 % (42.0-75.0)
[2024-05-05 12:21] LABS: Anisocytosis SLIGHT = 6-15 cells HPF (0-5); Burr Cells MODERATE= 6-15 cells HPF (0-1); Macrocytosis SLIGHT = 6-15 cells HPF (0-5); Platelet Adequacy Comment Platelets Decreased; Poikilocytosis SLIGHT = 6-15 cells HPF (0-5); Polychromasia SLIGHT = 2-3 cells HPF (0-2)
[2024-05-05] MEDS ORDERED: Senokot S 8.6-50 MG TAB PO PRN (13:11)
[2024-05-05 14:16] VITALS: BMI 30.2
[2024-05-05] MEDS ORDERED: Glucagon 1 MG/ML KIT IM PRN (14:24)
[2024-05-05] MEDS ORDERED: Dextrose 50% Abboject 50 ML SYRINGE SLOW IVP PRN (14:24)
[2024-05-05] MEDS ORDERED: Insulin Lispro 100 UNIT/ML 10 ML VIAL SC PRN (14:24)
[2024-05-05] MEDS ORDERED: Dextrose 5% in Water 1,000 ML IV PRN (14:24)
[2024-05-05] MEDS ORDERED: Vancomycin Hemodialysis Sliding Scale FS SCH (14:45)
[2024-05-05] MEDS ORDERED: Heparin 5,000 UNITS/ML VIAL SC SCH (15:00)
[2024-05-05 15:44] LABS: Troponin I 0.206 ng/mL (< 0.028)
[2024-05-05 15:52] LABS: HBSAB Concentration Less than 8.00 mIU/mL; HBsAg Index 0.24 S/CO (0-0.99); Hep B Core Total Ab NONREACTIVE (NonReactive); Hep B Core Total Index 0.17 S/CO (0-0.79); Hep B Surf AB NONREACTIVE (NonReactive); Hep B Surf Ag NONREACTIVE S/CO (NonReactive); Hep C IgG Ab NONREACTIVE S/CO (NonReactive); Hep C Index 0.14 S/CO (0-0.79)
[2024-05-05 18:17] LABS: Troponin I 0.235 ng/mL (< 0.028)
[2024-05-05] MEDS: Acetaminophen 325 MG TAB PO PRN (19:23)
[2024-05-05] MEDS: Carvedilol 25 MG TAB PO SCH (22:30)
[2024-05-05] MEDS: Vancomycin (BATCH) 1.5 GM in Premix 1 BAG IVPB SCH (22:30)
[2024-05-05] MEDS: HYDROcodone/Acetaminophen 5/325 mg Tablet PO PRN (23:08)
[2024-05-05] MEDS: Atorvastatin Calcium 40 MG TAB PO SCH (23:09)
[2024-05-06] MEDS: Lidocaine 4% Patch TD SCH (01:41)
[2024-05-06 05:45] LABS: Hemoglobin A1c 5.8 % (4.0-6.0)
[2024-05-06 05:59] LABS: Vancomycin, Random Less than 1.4 ug/mL (See Comment)
[2024-05-06 06:04] LABS: Albumin 2.3 g/dL (3.4-4.8); Anion Gap 16 mmol/L (10-20); BUN (Urea Nitrogen) 23 mg/dL (9.8-20.1); BUN/Creatinine Ratio 6.44; Calc. Creatinine Clearance 17 mL/min (70-130); Calcium 7.7 mg/dL (7.8-10.44); Carbon Dioxide 21 mmol/L (23-31); Chloride 102 mmol/L (98-107); Estimated GFR 13; Glucose 128 mg/dL (80-115); Phosphorus 4.8 mg/dL (2.3-4.7); Potassium 3.3 mmol/L (3.5-5.1); Sodium 136 mmol/L (136-145)
[2024-05-06 06:11] LABS: #Basophils Less than 0.03 10x3/uL (0.0-0.2); %Basophils 0.2 % (0.0-1.0); %Eosinophils 1.2 % (0.0-10.0); %Lymphocytes 14.4 % (21.0-51.0); %Monocytes 13.2 % (0.0-10.0); %Neutrophils 70.8 % (42.0-75.0); Hematocrit 32.8 % (36.0-47.0); Hemoglobin 10.4 g/dL (12.0-16.0); Mean Corpuscular HGB CONC 31.7 g/dL (32.0-36.0); Mean Corpuscular Hemoglobin 32.1 pg (27.0-31.0); Mean Corpuscular Volume 101.2 fL (78.0-98.0); Mean Platelet Volume 10.6 fL (7.4-10.4); Platelet Count 71 10x3/uL (130-400); RBC Distribution Width 16.4 % (11.5-14.5); Red Blood Cell (RBC) Count 3.24 mill/uL (4.20-5.40)
[2024-05-06] MEDS ORDERED: Apixaban 5 MG TAB PO SCH (09:00)
[2024-05-06] MEDS ORDERED: Morphine 4 MG/ML VIAL SLOW IVP PRN (09:13)
[2024-05-06] MEDS: Pantoprazole DR 40 MG TAB PO SCH (10:00)
[2024-05-06] MEDS: Aspirin 81 mg Enteric Coated Tablet PO SCH (10:00)
[2024-05-06] MEDS: Clopidogrel Bisulfate 75 MG TAB PO SCH (10:00)
[2024-05-06] MEDS: Vancomycin (BATCH) 1.5 GM in Premix 1 BAG IVPB SCH (12:00)
[2024-05-06] MEDS: Potassium Chloride 20 MEQ TAB PO SCH (12:39)
[2024-05-06] MEDS: Transdermal Patch Removal TOP SCH (12:41)
[2024-05-06] MEDS: Insulin Lispro 100 UNIT/ML 10 ML VIAL SC PRN (17:37)
[2024-05-06] MEDS: Amiodarone 200 MG TAB PO SCH (21:27)
[2024-05-06] MEDS: Apixaban 5 MG TAB PO SCH (21:27)
[2024-05-07 06:23] LABS: Hematocrit 32.7 % (36.0-47.0); Hemoglobin 10.2 g/dL (12.0-16.0); Mean Corpuscular HGB CONC 31.2 g/dL (32.0-36.0); Mean Corpuscular Hemoglobin 32.1 pg (27.0-31.0); Mean Corpuscular Volume 102.8 fL (78.0-98.0); Mean Platelet Volume 10.7 fL (7.4-10.4); Platelet Count 81 10x3/uL (130-400); RBC Distribution Width 16.3 % (11.5-14.5); Red Blood Cell (RBC) Count 3.18 mill/uL (4.20-5.40)
[2024-05-07] MEDS: Loperamide HCl 2 MG CAP PO PRN (06:32)
[2024-05-07 06:48] LABS: Anion Gap 17 mmol/L (10-20); BUN (Urea Nitrogen) 32 mg/dL (9.8-20.1); Calc. Creatinine Clearance 14 mL/min (70-130); Calcium 7.7 mg/dL (7.8-10.44); Carbon Dioxide 21 mmol/L (23-31); Chloride 101 mmol/L (98-107); Estimated GFR 11; Glucose 148 mg/dL (80-115); Potassium 3.8 mmol/L (3.5-5.1); Sodium 135 mmol/L (136-145)
[2024-05-07] MEDS: cefTRIAXone\\ROCEPHIN 1 GM in Sodium Chloride 0.9% 100 ML IVPB SCH (12:36)
[2024-05-07 19:07] VITALS: BMI 30.2
[2024-05-08 07:19] LABS: Vancomycin, Trough 12.2 ug/mL
[2024-05-08] MEDS ORDERED: Albumin 25% 25 GM (100 mL) BOT IVPB PRN (10:33)
[2024-05-08 15:16] LABS: Campy jejuni + coli by PCR Negative (Negative); STEC Shiga Toxin 1+2 Negative (Negative); Salmonella spp. by PCR Negative (Negative); Shigella spp + EIEC by PCR Negative (Negative)
[2024-05-08] MEDS: Vancomycin HCl 750 MG in Sodium Chloride 0.9% 250 ML 250 ML IVPB SCH (16:49)
[2024-05-09] MEDS: Ondansetron ODT 4 MG TAB PO PRN (04:10)
[2024-05-09 05:45] LABS: Hematocrit 33.7 % (36.0-47.0); Hemoglobin 10.5 g/dL (12.0-16.0); Mean Corpuscular HGB CONC 31.2 g/dL (32.0-36.0); Mean Corpuscular Hemoglobin 32.2 pg (27.0-31.0); Mean Corpuscular Volume 103.4 fL (78.0-98.0); Mean Platelet Volume 10.4 fL (7.4-10.4); Platelet Count 86 10x3/uL (130-400); RBC Distribution Width 16.2 % (11.5-14.5); Red Blood Cell (RBC) Count 3.26 mill/uL (4.20-5.40)
[2024-05-09 06:05] LABS: Anion Gap 17 mmol/L (10-20); BUN (Urea Nitrogen) 29 mg/dL (9.8-20.1); Calc. Creatinine Clearance 16 mL/min (70-130); Calcium 7.7 mg/dL (7.8-10.44); Carbon Dioxide 18 mmol/L (23-31); Chloride 102 mmol/L (98-107); Estimated GFR 13; Glucose 115 mg/dL (80-115); Potassium 3.7 mmol/L (3.5-5.1); Sodium 133 mmol/L (136-145)
[2024-05-10 15:24] LABS: Vancomycin, Trough 8.1 ug/mL
[2024-05-10] MEDS: Vancomycin 1 GM in Premix 1 BAG IVPB SCH (16:27)
[2024-05-10] MEDS: Apixaban 2.5 MG TAB PO SCH (21:19)
[2024-05-11 05:07] VITALS: TEMP 97.6
[2024-05-11] MEDS: Clindamycin 150 MG CAP PO SCH (08:46)
[2024-05-11] MEDS: Saccharomyces boulardii 250 MG CAP PO SCH (08:47)
[2024-05-11 12:10] LABS: Anion Gap 17 mmol/L (10-20); BUN (Urea Nitrogen) 28 mg/dL (9.8-20.1); Calc. Creatinine Clearance 16 mL/min (70-130); Calcium 7.4 mg/dL (7.8-10.44); Carbon Dioxide 20 mmol/L (23-31); Chloride 102 mmol/L (98-107); Estimated GFR 13; Glucose 160 mg/dL (80-115); Potassium 4.6 mmol/L (3.5-5.1); Sodium 134 mmol/L (136-145)
[2024-05-11 18:12] VITALS: BP 135/62
== END 2024-05-11 19:10 | disposition home or self-care (01) | DRG 280 ==
LOC: ERS 10:29 → ERHOLD 13:13 → 2NO 19:16
PROVIDERS: ADMIT Family Medicine; ATTEND Internal Medicine
DX: I13.2 Hypertensive heart and chronic kidney disease with heart failure and with stage 5 chronic kidney disease, or end stage renal disease (principal); I50.33 Acute on chronic diastolic (congestive) heart failure; I21.A1 Myocardial infarction type 2; N18.6 End stage renal disease; E87.20 Acidosis, unspecified; L03.116 Cellulitis of left lower limb; I48.19 Other persistent atrial fibrillation; I25.10 Atherosclerotic heart disease of native coronary artery without angina pectoris; Z95.1 Presence of aortocoronary bypass graft; I48.0 Paroxysmal atrial fibrillation; E78.5 Hyperlipidemia, unspecified; E11.22 Type 2 diabetes mellitus with diabetic chronic kidney disease; Z99.2 Dependence on renal dialysis; Z95.0 Presence of cardiac pacemaker; E87.6 Hypokalemia; E88.09 Other disorders of plasma-protein metabolism, not elsewhere classified; D63.1 Anemia in chronic kidney disease; K52.9 Noninfective gastroenteritis and colitis, unspecified
CPT/HCPCS: 36415; 36416; 36600; 71045; 80048; 80053; 80069; 80202; 82805; 83036; 83690; 83735; 83880; 84484; 85025; 85027; 86704; 86706; 86803; 87070; 87077; 87186; 87205; 87324; 87340; 87449; 87505; 90935; 93005; 96374; 97139; G0257; J0696; J1815; J2272; J3370; J3370-JW; J7050; Q0162